=== PATIENT | female | born 1995 | race American Indian/Alaskan Native ===

== ENCOUNTER 2020-03-05 20:42 | Inpatient (IN) | payer BC, OTHER ==
[2020-03-06] MEDS ORDERED: TERBUTALINE 1 MG/1 ML INJ SUB-Q PRN ×2 (00:24→06:35)
[2020-03-06] MEDS ORDERED: LIDOCAINE (2%) 20 MG/1 ML VIAL 20 ML MDV INFILTRATI ONE (00:24)
[2020-03-06] MEDS ORDERED: ePHEDrine SULFATE 50 MG/1 ML INJ IV PRN (00:24)
[2020-03-06] MEDS ORDERED: MINERAL OIL 30 ML ORAL LIQD PO PRN (00:24)
[2020-03-06] MEDS ORDERED: DINOPROSTONE 10 MG VAG SUPP VG ONE (00:30)
[2020-03-06 00:57] LABS: Hematocrit 28.8 % (30.3-42.9); Hemoglobin 9.9 gm/dl (10.1-14.3); Mean Corpuscular HGB Conc 34 % (30-34); Mean Corpuscular Volume 83 fl (79-97); Platelet Count 317 K/mm3 (140-440); Red Blood Count 3.47 M/mm3 (3.65-5.03)
[2020-03-06] MEDS ORDERED: OXYTOCIN DRIP 30 UNITS/500 ML BAG IV SCH ×2 (01:00)
[2020-03-06] MEDS: LACTATED RINGERS 1,000 ML IV SCH ×4 (01:21→20:05)
[2020-03-06] MEDS ORDERED: fentaNYL 100 MCG/2 ML INJ IV PRN (06:35)
--- NOTE | 2020-03-06 07:19 | History and Physical Report ---
History of Present Illness Date of examination: 03/06/20 Date of admission: 03/05/20 20:42 Chief complaint: Presents for induction of labor due to maternal obesity. History of present illness: Pt transferred into care at 25 2/7 weeks to [facility] from [facility]. course complicated by maternal obesity and rapid weight gain, heart murmur (cardiac consult 12/10; normal echo 12/30), and HTN diagnosed in childhood (pt not on any medications). Denies NUNEZ, visual changes, N&V, abd pain. Admits mild swelling of feet. Past History Past Medical History: hypertension, other (bipolar disorder, pyelonephritis) Past Surgical History: other (ankle surgery) Family/Genetic History: cancer (breast cancer (maternal grandmother)) Social history: single - Obstetrical History Expected Date of Delivery: 03/12/20 Actual Gestation: 39 Week(s) 1 Day(s) : 2 Para: 0 Hx # Term Pregnancies: 0 Spontaneous Abortions: 0 Induced : 1 Number of Living Children: 0 Medications and Allergies Allergies Allergy/AdvReac Type Severity Reaction Status Date / Time hydrocodone Allergy Rash Verified 03/05/20 23:12 Home Medications Medication Instructions Recorded Confirmed Last Taken Type Cholecalciferol (Vitamin D3) 1,500 unit PO 1XW 03/06/20 03/06/20 02/28/20 08:00 History [Vitamin D3 2,000 UNIT CAP] One Daily Tablet 1 tab PO DAILY 03/06/20 03/06/20 03/05/20 08:00 History Active Meds: Active Medications Ephedrine Sulfate (Ephedrine Sulfate) 10 mg IV Q2M PRN PRN Reason: Hypotension Fentanyl (Sublimaze) 100 mcg IV Q2H PRN PRN Reason: Pain,Severe (7-10) LABOR PAIN Last Admin: 03/06/20 06:59 Dose: 100 mcg Documented by: Oxytocin/Sodium Chloride (Pitocin/Ns 30 Unit/500ml) 30 units in 500 mls @ 2 mls/hr IV TITR MELONY; Protocol Lactated Ringer's (Lactated Ringers) 1,000 mls @ 125 mls/hr IV DIRECT MELONY Last Admin: 03/06/20 01:21 Dose: 125 mls/hr Documented by: Oxytocin/Sodium Chloride (Pitocin/Ns 30 Unit/500ml) 30 units in 500 mls @ 40 mls/hr IV TITR MELONY; Protocol Mineral Oil (Mineral Oil) 30 ml PO QHS PRN PRN Reason: Constipation Terbutaline Sulfate (Brethine) 0.25 mg SUB-Q ONCE PRN PRN Reason: Hyperstimulation/Hypertonicity Review of Systems All systems: negative - Vital Signs Vital signs: Vital Signs Pulse BP 109 H 134/75 03/05/20 21:34 03/05/20 21:34 Temp Pulse Resp BP Pulse Ox 98.6 F 99 H 18 127/68 99 03/05/20 22:29 03/06/20 06:56 03/05/20 22:29 03/06/20 04:35 03/06/20 06:56 - Physical Exam Breasts: Positive: normal Cardiovascular: Regular rate Lungs: Positive: Normal air movement Abdomen: Positive: normal appearance, soft Genitourinary (Female): Positive: normal external genitalia, normal perenium Vagina: Positive: normal moisture Uterus: Positive: enlarged Anus/Rectum: Positive: normal perianal skin Extremities: Positive: normal - Obstetrical FHR: category 1 Uterine Contraction Monitor Mode: External Cervical Dilatation: 2 (per RN) Cervical Effacement Percentage: 50 station: -4 Uterine Contraction Pattern: Irregular Uterine Tone Measurement Phase: Resting Uterine Contraction Intensity: Mild Results Result Diagrams: 03/05/20 21:53 Abnormal lab results 03/05/20 Range/Units 21:53 WBC 13.9 H (4.5-11.0) K/mm3 RBC 3.47 L (3.65-5.03) M/mm3 Hgb 9.9 L (10.1-14.3) gm/dl Hct 28.8 L (30.3-42.9) % All other labs normal. Assessment and Plan A: IUP at 39 1/7 weeks Category I tracing Maternal Obesity Bipolar Disorder CHTN GBS Negative P: Admit to L&D per routine orders Cervidil Induction
--- NOTE | 2020-03-06 09:07 | Progress Note ---
Assessment and Plan A: IUP@ 39.2 wks IOL r/t Obesity, preeclampsia GBS neg P: Continue monitoring pain med/ epidural prn Will start Pitocin once cervidil is out - Patient Problems (1) Term Current Visit: Yes Status: Acute (2) Maternal obesity affecting , antepartum Current Visit: Yes Status: Acute (3) Bipolar 1 disorder Current Visit: Yes Status: Acute (4) Preeclampsia Current Visit: Yes Status: Acute Subjective - Subjective Date of service: 03/06/20 Principal diagnosis: IOL @ 39.2 wks Patient reports: movement normal Objective - Vital Signs Vital Signs: Vital Signs - 12hr 03/05/20 03/05/20 03/05/20 21:34 22:29 22:35 Temperature 98.6 F Pulse Rate 109 H 110 H Respiratory 18 Rate Blood Pressure 134/75 132/88 O2 Sat by Pulse Oximetry 03/05/20 03/06/20 03/06/20 23:36 00:35 01:18 Temperature Pulse Rate 111 H 95 H Respiratory Rate Blood Pressure 121/82 132/87 O2 Sat by Pulse 87 Oximetry 03/06/20 03/06/20 03/06/20 01:19 01:24 01:29 Temperature Pulse Rate 106 H 103 H 102 H Respiratory Rate Blood Pressure O2 Sat by Pulse 100 99 98 Oximetry 03/06/20 03/06/20 03/06/20 01:34 01:35 01:39 Temperature Pulse Rate 97 H 96 H 96 H Respiratory Rate Blood Pressure 134/67 O2 Sat by Pulse 97 98 Oximetry 03/06/20 03/06/20 03/06/20 01:44 01:49 01:54 Temperature Pulse Rate 97 H 104 H 97 H Respiratory Rate Blood Pressure O2 Sat by Pulse 97 97 97 Oximetry 03/06/20 03/06/20 03/06/20 01:59 02:04 02:09 Temperature Pulse Rate 98 H 102 H 101 H Respiratory Rate Blood Pressure O2 Sat by Pulse 98 98 97 Oximetry 03/06/20 03/06/20 03/06/20 02:14 02:19 02:24 Temperature Pulse Rate 102 H 99 H 102 H Respiratory Rate Blood Pressure O2 Sat by Pulse 97 96 97 Oximetry 03/06/20 03/06/20 03/06/20 02:29 02:34 02:35 Temperature Pulse Rate 99 H 95 H 99 H Respiratory Rate Blood Pressure 126/87 O2 Sat by Pulse 98 98 Oximetry 03/06/20 03/06/20 03/06/20 02:39 02:44 02:49 Temperature Pulse Rate 101 H 103 H 98 H Respiratory Rate Blood Pressure O2 Sat by Pulse 98 98 99 Oximetry 03/06/20 03/06/20 03/06/20 02:54 02:59 03:04 Temperature Pulse Rate 103 H 91 H 97 H Respiratory Rate Blood Pressure O2 Sat by Pulse 99 99 98 Oximetry 03/06/20 03/06/20 03/06/20 03:09 03:14 03:19 Temperature Pulse Rate 93 H 86 92 H Respiratory Rate Blood Pressure O2 Sat by Pulse 98 98 99 Oximetry 03/06/20 03/06/20 03/06/20 03:24 03:29 03:34 Temperature Pulse Rate 89 97 H 95 H Respiratory Rate Blood Pressure O2 Sat by Pulse 99 99 99 Oximetry 03/06/20 03/06/20 03/06/20 03:36 03:39 03:44 Temperature Pulse Rate 100 H 93 H 91 H Respiratory Rate Blood Pressure 135/76 O2 Sat by Pulse 99 98 Oximetry 03/06/20 03/06/20 03/06/20 03:49 03:54 03:59 Temperature Pulse Rate 93 H 92 H 93 H Respiratory Rate Blood Pressure O2 Sat by Pulse 98 98 98 Oximetry 03/06/20 03/06/20 03/06/20 04:04 04:09 04:14 Temperature Pulse Rate 91 H 98 H 95 H Respiratory Rate Blood Pressure O2 Sat by Pulse 97 98 97 Oximetry 03/06/20 03/06/20 03/06/20 04:19 04:24 04:29 Temperature Pulse Rate 96 H 95 H 97 H Respiratory Rate Blood Pressure O2 Sat by Pulse 98 98 98 Oximetry 03/06/20 03/06/20 03/06/20 04:34 04:35 04:39 Temperature Pulse Rate 100 H 100 H 108 H Respiratory Rate Blood Pressure 127/68 O2 Sat by Pulse 98 98 Oximetry 03/06/20 03/06/20 03/06/20 04:44 04:56 05:01 Temperature Pulse Rate 107 H 114 H 99 H Respiratory Rate Blood Pressure O2 Sat by Pulse 97 100 100 Oximetry 03/06/20 03/06/20 03/06/20 05:06 05:11 05:16 Temperature Pulse Rate 101 H 98 H 106 H Respiratory Rate Blood Pressure O2 Sat by Pulse 98 99 99 Oximetry 03/06/20 03/06/20 03/06/20 05:21 05:26 05:31 Temperature Pulse Rate 100 H 101 H 103 H Respiratory Rate Blood Pressure O2 Sat by Pulse 99 98 98 Oximetry 03/06/20 03/06/20 03/06/20 05:36 05:41 05:46 Temperature Pulse Rate 100 H 103 H 100 H Respiratory Rate Blood Pressure O2 Sat by Pulse 98 98 99 Oximetry 03/06/20 03/06/20 03/06/20 05:51 05:56 06:01 Temperature Pulse Rate 108 H 103 H 109 H Respiratory Rate Blood Pressure O2 Sat by Pulse 98 98 98 Oximetry 03/06/20 03/06/20 03/06/20 06:06 06:11 06:16 Temperature Pulse Rate 108 H 98 H 98 H Respiratory Rate Blood Pressure O2 Sat by Pulse 99 100 99 Oximetry 03/06/20 03/06/20 03/06/20 06:21 06:26 06:31 Temperature Pulse Rate 97 H 95 H 93 H Respiratory Rate Blood Pressure O2 Sat by Pulse 98 100 99 Oximetry 03/06/20 03/06/20 03/06/20 06:41 06:46 06:51 Temperature Pulse Rate 107 H 99 H 100 H Respiratory Rate Blood Pressure O2 Sat by Pulse 100 99 100 Oximetry 03/06/20 03/06/20 03/06/20 06:56 07:01 07:06 Temperature Pulse Rate 99 H 102 H 101 H Respiratory Rate Blood Pressure O2 Sat by Pulse 99 98 98 Oximetry 03/06/20 03/06/20 03/06/20 07:11 07:16 07:21 Temperature Pulse Rate 107 H 109 H 107 H Respiratory Rate Blood Pressure O2 Sat by Pulse 98 98 99 Oximetry 03/06/20 03/06/20 03/06/20 07:26 07:31 07:36 Temperature Pulse Rate 107 H 105 H 105 H Respiratory Rate Blood Pressure O2 Sat by Pulse 99 99 98 Oximetry 03/06/20 03/06/20 03/06/20 07:41 07:46 07:55 Temperature Pulse Rate 106 H 105 H 104 H Respiratory Rate Blood Pressure O2 Sat by Pulse 98 98 99 Oximetry 11/05/20 11/05/20 11/05/20 08:00 08:05 08:10 Temperature Pulse Rate 114 H 98 H 99 H Respiratory Rate Blood Pressure O2 Sat by Pulse 98 99 99 Oximetry 03/06/20 03/06/20 03/06/20 08:15 08:18 08:20 Temperature 98.6 F Pulse Rate 104 H 103 H Respiratory 20 Rate Blood Pressure O2 Sat by Pulse 99 99 Oximetry 03/06/20 03/06/20 03/06/20 08:25 08:30 08:35 Temperature Pulse Rate 105 H 109 H 110 H Respiratory Rate Blood Pressure O2 Sat by Pulse 99 99 98 Oximetry 03/06/20 03/06/20 03/06/20 08:40 08:45 08:50 Temperature Pulse Rate 105 H 103 H 104 H Respiratory Rate Blood Pressure O2 Sat by Pulse 99 100 99 Oximetry 03/06/20 03/06/20 08:55 09:00 Temperature Pulse Rate 102 H 106 H Respiratory Rate Blood Pressure O2 Sat by Pulse 100 100 Oximetry - Exam Breasts: normal Abdomen: Present: normal appearance, soft, other (gravid) Vulva: both: normal Uterus: Present: normal, other (gravid) FHR: auscultation normal, category 1 Uterine Contraction Monitor Mode: External Cervical Dilatation: 2 Cervical Effacement Percentage: 50 station: -4 Uterine Contraction Pattern: Irregular Uterine Tone Measurement Phase: Resting Uterine Contraction Intensity: Mild Extremities: normal - Labs Labs: Abnormal Labs 03/05/20 21:53 WBC 13.9 H RBC 3.47 L Hgb 9.9 L Hct 28.8 L Laboratory Results - last 24 hr 03/05/20 03/05/20 03/05/20 21:53 21:53 21:53 WBC 13.9 H RBC 3.47 L Hgb 9.9 L Hct 28.8 L MCV 83 MCH 29 MCHC 34 RDW 15.0 Plt Count 317 Syphilis IgG Antibody Nonreactive Blood Type A POSITIVE Antibody Screen Negative
[2020-03-06] MEDS ORDERED: NalbUPHINE 10 MG/1 ML INJ IV PRN ×2 (11:45→14:25)
[2020-03-06] MEDS ORDERED: ONDANSETRON 4 MG/2 ML INJ IV PRN ×2 (11:45→14:25)
[2020-03-06] MEDS ORDERED: BUTORPHANOL 2 MG/1 ML INJ IV PRN (11:52)
[2020-03-06] MEDS ORDERED: NALOXONE 2 MG/2 ML INJ IV PRN (14:25)
[2020-03-06] MEDS ORDERED: diphenhydrAMINE 50 MG/ML VIAL IV PRN (14:25)
[2020-03-06] MEDS ORDERED: DEXMEDETOMIDINE 200 MCG/2 ML VIAL IV ONE (14:28)
--- NOTE | 2020-03-06 15:03 | Anesthesia Consultation ---
Anesthesia Consult and Med Hx Date of service: 03/06/20 - Airway Anesthetic Teeth Evaluation: Good ROM Head & Neck: Adequate Mental/Hyoid Distance: Adequate Mallampati Class: Class III Intubation Access Assessment: Probably Good - Pulmonary Exam CTA: Yes - Cardiac Exam Cardiac Exam: RRR - Pre-Operative Health Status ASA Pre-Surgery Classification: ASA2 Proposed Anesthetic Plan: Epidural - Pulmonary Hx Smoking: No Hx Asthma: No Hx Sleep Apnea: No - Cardiovascular System Hx Hypertension: Yes Hx Heart Attack/AMI: No - Central Nervous System Hx Seizures: No Hx Psychiatric Problems: No - Gastrointestinal Hx Gastroesophageal Reflux Disease: No - Endocrine Hx Renal Disease: No Hx Hypothyroidism: No Hx Hyperthyroidism: No - Hematic Hx Anemia: No Hx Sickle Cell Disease: No - Other Systems Hx Alcohol Use: Yes
--- NOTE | 2020-03-06 15:06 | Progress Note ---
Labor Epidural - Labor Epidural Start Time: 14:32 Stop Time: 14:54 Performed by:: VANE SMITH ([facility]) Procedure: Patient is requesting a laboring epidural for laboring pain. Patient IDed, H&P reviewed, all questions and concerns were answered, and consent was signed. Timeout was performed at bedside. Patient in sitting position. Sterile prep and drape was performed. 3ml of 1% lidocaine skin wheal at L[3]- L [4]. 18- gauge Touhy epidural needle was advanced to loss of resistance with air technique. Negative CSF negative blood. Epidural catheter advanced to [17] centimeters. [-] Aspiration [-] test dose. Sterile dressing applied. Patient tolerated procedure.
[2020-03-06] MEDS: fentaNYL-BUPIV 2 MCG/ML-0.125% 200 MCG/100 ML BAG EPIDURAL SCH ×2 (15:25→23:31)
--- NOTE | 2020-03-06 20:22 | Progress Note ---
Assessment and Plan A: IUP @39.2 wks Preeclampsia P: Continue monitoring Anticipate - Patient Problems (1) Term Current Visit: Yes Status: Acute (2) Maternal obesity affecting , antepartum Current Visit: Yes Status: Acute (3) Bipolar 1 disorder Current Visit: Yes Status: Acute (4) Preeclampsia Current Visit: Yes Status: Acute Subjective - Subjective Date of service: 03/06/20 Principal diagnosis: IOL @ 39.2 wks Patient reports: movement normal Objective - Vital Signs Vital Signs: Vital Signs - 12hr 03/06/20 03/06/20 03/06/20 08:18 08:20 08:25 Temperature 98.6 F Pulse Rate 103 H 105 H Respiratory 20 Rate Blood Pressure O2 Sat by Pulse 99 99 Oximetry 03/06/20 03/06/20 03/06/20 08:30 08:35 08:40 Temperature Pulse Rate 109 H 110 H 105 H Respiratory Rate Blood Pressure O2 Sat by Pulse 99 98 99 Oximetry 03/06/20 03/06/20 03/06/20 08:45 08:50 08:55 Temperature Pulse Rate 103 H 104 H 102 H Respiratory Rate Blood Pressure O2 Sat by Pulse 100 99 100 Oximetry 03/06/20 03/06/20 03/06/20 09:00 09:05 09:14 Temperature Pulse Rate 106 H 106 H 103 H Respiratory Rate Blood Pressure O2 Sat by Pulse 100 98 100 Oximetry 03/06/20 03/06/20 03/06/20 09:19 09:24 09:29 Temperature Pulse Rate 107 H 99 H 107 H Respiratory Rate Blood Pressure O2 Sat by Pulse 98 99 99 Oximetry 03/06/20 03/06/20 03/06/20 09:34 09:39 09:44 Temperature Pulse Rate 106 H 102 H 98 H Respiratory Rate Blood Pressure O2 Sat by Pulse 100 99 100 Oximetry 03/06/20 03/06/20 03/06/20 09:49 09:54 09:59 Temperature Pulse Rate 104 H 104 H 113 H Respiratory Rate Blood Pressure O2 Sat by Pulse 99 99 100 Oximetry 03/06/20 03/06/20 03/06/20 10:04 10:09 10:16 Temperature Pulse Rate 112 H 107 H 105 H Respiratory Rate Blood Pressure O2 Sat by Pulse 99 99 99 Oximetry 03/06/20 03/06/20 03/06/20 10:21 10:26 10:31 Temperature Pulse Rate 111 H 111 H 110 H Respiratory Rate Blood Pressure O2 Sat by Pulse 99 99 99 Oximetry 03/06/20 03/06/20 03/06/20 10:36 10:41 10:46 Temperature Pulse Rate 112 H 108 H 110 H Respiratory Rate Blood Pressure O2 Sat by Pulse 100 100 100 Oximetry 03/06/20 03/06/20 03/06/20 10:51 10:56 11:01 Temperature Pulse Rate 109 H 111 H 108 H Respiratory Rate Blood Pressure O2 Sat by Pulse 99 98 99 Oximetry 03/06/20 03/06/20 03/06/20 11:06 11:11 11:14 Temperature Pulse Rate 109 H 108 H 44 L Respiratory Rate Blood Pressure O2 Sat by Pulse 100 100 93 Oximetry 03/06/20 03/06/20 03/06/20 11:16 11:21 11:26 Temperature Pulse Rate 111 H 111 H 112 H Respiratory Rate Blood Pressure O2 Sat by Pulse 99 100 100 Oximetry 03/06/20 03/06/20 03/06/20 11:31 11:36 11:41 Temperature Pulse Rate 109 H 111 H 108 H Respiratory Rate Blood Pressure O2 Sat by Pulse 99 99 99 Oximetry 03/06/20 03/06/20 03/06/20 11:46 11:52 11:57 Temperature Pulse Rate 116 H 109 H 109 H Respiratory Rate Blood Pressure O2 Sat by Pulse 100 99 99 Oximetry 03/06/20 03/06/20 03/06/20 11:59 12:02 12:07 Temperature Pulse Rate 106 H 111 H 109 H Respiratory Rate Blood Pressure 139/84 O2 Sat by Pulse 98 98 Oximetry 03/06/20 03/06/20 03/06/20 12:12 12:16 12:17 Temperature Pulse Rate 110 H 102 H 109 H Respiratory Rate Blood Pressure 134/82 O2 Sat by Pulse 98 99 Oximetry 03/06/20 03/06/20 03/06/20 12:22 12:27 12:31 Temperature Pulse Rate 100 H 109 H 109 H Respiratory Rate Blood Pressure 142/84 O2 Sat by Pulse 97 97 Oximetry 03/06/20 03/06/20 03/06/20 12:32 12:37 12:42 Temperature Pulse Rate 108 H 107 H 104 H Respiratory Rate Blood Pressure O2 Sat by Pulse 99 98 99 Oximetry 1103/06/20 03/06/20 12:45 12:46 12:47 Temperature Pulse Rate 103 H 99 H 105 H Respiratory Rate Blood Pressure 156/91 143/85 O2 Sat by Pulse 97 Oximetry 03/06/20 03/06/20 03/06/20 12:52 12:57 12:59 Temperature Pulse Rate 103 H 103 H 103 H Respiratory Rate Blood Pressure 135/81 O2 Sat by Pulse 100 98 Oximetry 03/06/20 03/06/20 03/06/20 13:02 13:03 13:07 Temperature Pulse Rate 104 H 50 L 109 H Respiratory Rate Blood Pressure O2 Sat by Pulse 98 80 L 97 Oximetry 03/06/20 03/06/20 03/06/20 13:12 13:14 13:17 Temperature Pulse Rate 111 H 103 H 106 H Respiratory Rate Blood Pressure 145/86 O2 Sat by Pulse 98 97 Oximetry 03/06/20 03/06/20 03/06/20 13:22 13:27 13:31 Temperature Pulse Rate 103 H 110 H 107 H Respiratory Rate Blood Pressure 175/92 O2 Sat by Pulse 96 99 Oximetry 03/06/20 03/06/20 03/06/20 13:32 13:37 13:42 Temperature Pulse Rate 106 H 111 H 108 H Respiratory Rate Blood Pressure O2 Sat by Pulse 97 99 97 Oximetry 03/06/20 03/06/20 03/06/20 13:44 13:47 13:52 Temperature Pulse Rate 106 H 107 H 109 H Respiratory Rate Blood Pressure 159/84 O2 Sat by Pulse 99 97 Oximetry 03/06/20 03/06/20 03/06/20 13:57 13:59 14:02 Temperature Pulse Rate 108 H 107 H 113 H Respiratory Rate Blood Pressure 152/81 O2 Sat by Pulse 99 98 Oximetry 03/06/20 03/06/20 03/06/20 14:07 14:12 14:16 Temperature Pulse Rate 106 H 111 H 109 H Respiratory Rate Blood Pressure 142/80 O2 Sat by Pulse 99 99 Oximetry 03/06/20 03/06/20 03/06/20 14:17 14:22 14:27 Temperature Pulse Rate 112 H 114 H 116 H Respiratory Rate Blood Pressure O2 Sat by Pulse 99 99 99 Oximetry 03/06/20 03/06/20 03/06/20 14:30 14:32 14:36 Temperature Pulse Rate 114 H 119 H Respiratory Rate Blood Pressure 136/95 O2 Sat by Pulse 99 82 L Oximetry 03/06/20 03/06/20 03/06/20 14:37 14:42 14:45 Temperature Pulse Rate 110 H 111 H 109 H Respiratory Rate Blood Pressure 162/85 O2 Sat by Pulse 98 100 Oximetry 03/06/20 03/06/20 03/06/20 14:47 14:52 14:55 Temperature Pulse Rate 112 H 112 H 117 H Respiratory Rate Blood Pressure 144/85 O2 Sat by Pulse 100 100 Oximetry 03/06/20 03/06/20 03/06/20 14:57 14:58 15:00 Temperature Pulse Rate 116 H 122 H 121 H Respiratory Rate Blood Pressure 169/80 191/114 O2 Sat by Pulse 100 Oximetry 03/06/20 03/06/20 03/06/20 15:02 15:03 15:06 Temperature Pulse Rate 120 H 112 H 105 H Respiratory Rate Blood Pressure 175/75 142/60 O2 Sat by Pulse 100 Oximetry 03/06/20 03/06/20 03/06/20 15:07 15:09 15:12 Temperature Pulse Rate 112 H 110 H 102 H Respiratory Rate Blood Pressure 153/83 150/75 O2 Sat by Pulse 99 99 Oximetry 03/06/20 03/06/20 03/06/20 15:15 15:17 15:18 Temperature Pulse Rate 108 H 112 H 110 H Respiratory Rate Blood Pressure 135/73 123/61 O2 Sat by Pulse 99 Oximetry 03/06/20 03/06/20 03/06/20 15:21 15:22 15:24 Temperature Pulse Rate 113 H 102 H 104 H Respiratory Rate Blood Pressure 114/61 121/68 O2 Sat by Pulse 99 Oximetry 03/06/20 03/06/20 03/06/20 15:27 15:30 15:32 Temperature Pulse Rate 108 H 107 H 105 H Respiratory Rate Blood Pressure 121/69 120/64 O2 Sat by Pulse 98 98 Oximetry 03/06/20 03/06/20 03/06/20 15:33 15:36 15:37 Temperature Pulse Rate 108 H 107 H 104 H Respiratory Rate Blood Pressure 123/70 117/65 O2 Sat by Pulse 98 Oximetry 03/06/20 03/06/20 03/06/20 15:39 15:42 15:45 Temperature Pulse Rate 112 H 110 H 107 H Respiratory Rate Blood Pressure 119/63 119/67 123/68 O2 Sat by Pulse 98 Oximetry 03/06/20 03/06/20 03/06/20 15:47 15:48 15:51 Temperature Pulse Rate 105 H 104 H 110 H Respiratory Rate Blood Pressure 127/68 121/68 O2 Sat by Pulse 97 Oximetry 03/06/20 03/06/20 03/06/20 15:52 15:54 15:57 Temperature Pulse Rate 108 H 108 H 107 H Respiratory Rate Blood Pressure 121/70 119/65 O2 Sat by Pulse 97 96 Oximetry 03/06/20 03/06/20 03/06/20 16:00 16:02 16:03 Temperature Pulse Rate 107 H 104 H 109 H Respiratory Rate Blood Pressure 119/66 109/59 O2 Sat by Pulse 97 Oximetry 03/06/20 03/06/20 03/06/20 16:06 16:07 16:12 Temperature Pulse Rate 109 H 104 H 102 H Respiratory Rate Blood Pressure 117/64 O2 Sat by Pulse 96 97 Oximetry 03/06/20 03/06/20 03/06/20 16:17 16:22 16:27 Temperature Pulse Rate 111 H 105 H 105 H Respiratory Rate Blood Pressure 132/76 O2 Sat by Pulse 96 98 98 Oximetry 03/06/20 03/06/20 03/06/20 16:32 16:36 16:37 Temperature Pulse Rate 105 H 103 H 103 H Respiratory Rate Blood Pressure 137/77 O2 Sat by Pulse 97 99 Oximetry 03/06/20 03/06/20 03/06/20 16:42 16:47 16:51 Temperature Pulse Rate 114 H 109 H 107 H Respiratory Rate Blood Pressure 135/81 O2 Sat by Pulse 99 100 Oximetry 03/06/20 03/06/20 03/06/20 16:52 16:57 17:02 Temperature Pulse Rate 105 H 117 H 101 H Respiratory Rate Blood Pressure O2 Sat by Pulse 100 100 100 Oximetry 03/06/20 03/06/20 03/06/20 17:06 17:07 17:12 Temperature Pulse Rate 108 H 113 H 115 H Respiratory Rate Blood Pressure 124/74 O2 Sat by Pulse 99 99 Oximetry 03/06/20 03/06/20 03/06/20 17:17 17:21 17:22 Temperature Pulse Rate 120 H 113 H 112 H Respiratory Rate Blood Pressure 121/69 O2 Sat by Pulse 99 100 Oximetry 03/06/20 03/06/20 03/06/20 17:27 17:32 17:36 Temperature Pulse Rate 111 H 112 H 112 H Respiratory Rate Blood Pressure 134/87 O2 Sat by Pulse 100 99 Oximetry 03/06/20 03/06/20 03/06/20 17:37 17:42 17:47 Temperature Pulse Rate 116 H 106 H 110 H Respiratory Rate Blood Pressure O2 Sat by Pulse 99 98 98 Oximetry 03/06/20 03/06/20 03/06/20 17:51 17:52 17:57 Temperature Pulse Rate 107 H 110 H 114 H Respiratory Rate Blood Pressure 120/70 O2 Sat by Pulse 99 99 Oximetry 03/06/20 03/06/20 03/06/20 18:02 18:06 18:07 Temperature Pulse Rate 111 H 108 H 113 H Respiratory Rate Blood Pressure 125/76 O2 Sat by Pulse 99 98 Oximetry 03/06/20 03/06/20 03/06/20 18:12 18:17 18:21 Temperature Pulse Rate 113 H 115 H 116 H Respiratory Rate Blood Pressure 152/99 O2 Sat by Pulse 98 99 Oximetry 03/06/20 03/06/20 03/06/20 18:22 18:27 18:32 Temperature Pulse Rate 117 H 116 H 126 H Respiratory Rate Blood Pressure O2 Sat by Pulse 99 99 99 Oximetry 03/06/20 03/06/20 03/06/20 18:36 18:37 18:42 Temperature Pulse Rate 120 H 123 H 118 H Respiratory Rate Blood Pressure 149/101 O2 Sat by Pulse 98 98 Oximetry 03/06/20 03/06/20 03/06/20 18:47 18:51 18:52 Temperature Pulse Rate 117 H 125 H 120 H Respiratory Rate Blood Pressure 137/82 O2 Sat by Pulse 98 98 Oximetry 03/06/20 03/06/20 03/06/20 18:57 19:02 19:06 Temperature Pulse Rate 122 H 114 H 118 H Respiratory Rate Blood Pressure 139/90 O2 Sat by Pulse 98 98 Oximetry 03/06/20 03/06/20 03/06/20 19:07 19:12 19:17 Temperature Pulse Rate 117 H 116 H 112 H Respiratory Rate Blood Pressure O2 Sat by Pulse 98 96 98 Oximetry 03/06/20 03/06/20 03/06/20 19:21 19:22 19:27 Temperature Pulse Rate 114 H 114 H 114 H Respiratory Rate Blood Pressure 130/75 O2 Sat by Pulse 97 97 Oximetry 03/06/20 03/06/20 03/06/20 19:32 19:36 19:37 Temperature Pulse Rate 117 H 116 H 119 H Respiratory Rate Blood Pressure 141/88 O2 Sat by Pulse 98 98 Oximetry 03/06/20 03/06/20 03/06/20 19:42 19:47 19:51 Temperature Pulse Rate 118 H 117 H 117 H Respiratory Rate Blood Pressure 131/77 O2 Sat by Pulse 98 97 Oximetry 03/06/20 03/06/20 03/06/20 19:52 19:57 20:02 Temperature Pulse Rate 121 H 121 H 112 H Respiratory Rate Blood Pressure O2 Sat by Pulse 97 96 97 Oximetry 03/06/20 03/06/20 20:07 20:12 Temperature Pulse Rate 116 H 124 H Respiratory Rate Blood Pressure 124/73 O2 Sat by Pulse 97 97 Oximetry - Exam Breasts: deferred Abdomen: Present: normal appearance, soft Vulva: both: normal Uterus: Present: normal, other (gravid) FHR: auscultation normal, category 1 Uterine Contraction Monitor Mode: External Cervical Dilatation: 4 Cervical Effacement Percentage: 75 station: -2 Uterine Contraction Frequency (min): q3-4 Uterine Contraction Pattern: Regular Uterine Tone Measurement Phase: Resting Uterine Contraction Intensity: Moderate Extremities: normal - Labs Labs: Abnormal Labs 03/05/20 21:53 WBC 13.9 H RBC 3.47 L Hgb 9.9 L Hct 28.8 L Laboratory Results - last 24 hr 03/05/20 03/05/20 03/05/20 21:53 21:53 21:53 WBC 13.9 H RBC 3.47 L Hgb 9.9 L Hct 28.8 L MCV 83 MCH 29 MCHC 34 RDW 15.0 Plt Count 317 Syphilis IgG Antibody Nonreactive Blood Type A POSITIVE Antibody Screen Negative
[2020-03-06] MEDS ORDERED: AMPICILLIN/NS 2 GM/100 ML 2 GM/100 ML BAG IV ONE (21:27)
[2020-03-07] MEDS ORDERED: ACETAMINOPHEN 325 MG TAB PO ONE (00:13)
[2020-03-07] MEDS ORDERED: AMPICILLIN/NS 2 GM/100 ML 2 GM/100 ML BAG IV ONE (00:30)
[2020-03-07] MEDS: LACTATED RINGERS 1,000 ML IV SCH ×3 (00:56→19:50)
[2020-03-07] MEDS: AMPICILLIN/NS 1 GM/50 ML 1 GM/50 ML BAG IV SCH ×5 (04:55→20:17)
--- NOTE | 2020-03-07 06:05 | Progress Note ---
Assessment and Plan A: IUP@ 39.3 wks chorioamnionitis P: Start Ampi Admin Tylenol IV bolus Continue monitoring Expectant mtg POC agrees with plan - Patient Problems (1) Term Current Visit: Yes Status: Acute (2) Maternal obesity affecting , antepartum Current Visit: Yes Status: Acute (3) Bipolar 1 disorder Current Visit: Yes Status: Acute (4) Preeclampsia Current Visit: Yes Status: Acute Subjective - Subjective Principal diagnosis: IOL @ 39.2 wks Patient reports: movement normal Objective - Vital Signs Vital Signs: Vital Signs - 12hr 03/06/20 03/06/20 03/06/20 17:57 18:02 18:06 Temperature Pulse Rate 114 H 111 H 108 H Respiratory Rate Blood Pressure 125/76 O2 Sat by Pulse 99 99 Oximetry 03/06/20 03/06/20 03/06/20 18:07 18:12 18:17 Temperature Pulse Rate 113 H 113 H 115 H Respiratory Rate Blood Pressure O2 Sat by Pulse 98 98 99 Oximetry 03/06/20 03/06/20 03/06/20 18:21 18:22 18:27 Temperature Pulse Rate 116 H 117 H 116 H Respiratory Rate Blood Pressure 152/99 O2 Sat by Pulse 99 99 Oximetry 03/06/20 03/06/20 03/06/20 18:32 18:36 18:37 Temperature Pulse Rate 126 H 120 H 123 H Respiratory Rate Blood Pressure 149/101 O2 Sat by Pulse 99 98 Oximetry 03/06/20 03/06/20 03/06/20 18:42 18:47 18:51 Temperature Pulse Rate 118 H 117 H 125 H Respiratory Rate Blood Pressure 137/82 O2 Sat by Pulse 98 98 Oximetry 03/06/20 03/06/20 03/06/20 18:52 18:57 19:02 Temperature Pulse Rate 120 H 122 H 114 H Respiratory Rate Blood Pressure O2 Sat by Pulse 98 98 98 Oximetry 03/06/20 03/06/20 03/06/20 19:06 19:07 19:12 Temperature Pulse Rate 118 H 117 H 116 H Respiratory Rate Blood Pressure 139/90 O2 Sat by Pulse 98 96 Oximetry 03/06/20 03/06/20 03/06/20 19:15 19:17 19:21 Temperature 99.2 F Pulse Rate 112 H 114 H Respiratory 18 Rate Blood Pressure 130/75 O2 Sat by Pulse 98 Oximetry 03/06/20 03/06/20 03/06/20 19:22 19:27 19:32 Temperature Pulse Rate 114 H 114 H 117 H Respiratory Rate Blood Pressure O2 Sat by Pulse 97 97 98 Oximetry 03/06/20 03/06/20 03/06/20 19:36 19:37 19:42 Temperature Pulse Rate 116 H 119 H 118 H Respiratory Rate Blood Pressure 141/88 O2 Sat by Pulse 98 98 Oximetry 03/06/20 03/06/20 03/06/20 19:47 19:51 19:52 Temperature Pulse Rate 117 H 117 H 121 H Respiratory Rate Blood Pressure 131/77 O2 Sat by Pulse 97 97 Oximetry 03/06/20 03/06/20 03/06/20 19:57 20:02 20:07 Temperature Pulse Rate 121 H 112 H 116 H Respiratory Rate Blood Pressure 124/73 O2 Sat by Pulse 96 97 97 Oximetry 03/06/20 03/06/20 03/06/20 20:12 20:17 20:21 Temperature Pulse Rate 124 H 116 H 118 H Respiratory Rate Blood Pressure 149/68 O2 Sat by Pulse 97 98 Oximetry 03/06/20 03/06/20 03/06/20 20:22 20:27 20:32 Temperature Pulse Rate 116 H 120 H 125 H Respiratory Rate Blood Pressure O2 Sat by Pulse 98 98 97 Oximetry 03/06/20 03/06/20 03/06/20 20:37 20:42 20:47 Temperature Pulse Rate 114 H 121 H 117 H Respiratory Rate Blood Pressure 144/91 O2 Sat by Pulse 99 98 99 Oximetry 03/06/20 03/06/20 03/06/20 20:52 20:57 21:02 Temperature Pulse Rate 117 H 114 H 113 H Respiratory Rate Blood Pressure 139/89 O2 Sat by Pulse 98 99 98 Oximetry 03/06/20 03/06/20 03/06/20 21:06 21:07 21:12 Temperature Pulse Rate 114 H 114 H 109 H Respiratory Rate Blood Pressure 142/76 O2 Sat by Pulse 97 99 Oximetry 03/06/20 03/06/20 03/06/20 21:17 21:21 21:22 Temperature Pulse Rate 115 H 117 H 122 H Respiratory Rate Blood Pressure 136/63 O2 Sat by Pulse 98 97 Oximetry 11/05/20 11/05/20 11/05/20 21:27 21:32 21:36 Temperature Pulse Rate 116 H 117 H 114 H Respiratory Rate Blood Pressure 136/74 O2 Sat by Pulse 97 98 Oximetry 03/06/20 03/06/20 03/06/20 21:37 21:42 21:47 Temperature Pulse Rate 119 H 111 H 113 H Respiratory Rate Blood Pressure O2 Sat by Pulse 97 97 97 Oximetry 03/06/20 03/06/20 03/06/20 21:52 21:57 22:00 Temperature 99.8 F H Pulse Rate 123 H 118 H Respiratory 18 Rate Blood Pressure 146/88 O2 Sat by Pulse 98 96 Oximetry 03/06/20 03/06/20 03/06/20 22:02 22:06 22:07 Temperature Pulse Rate 118 H 115 H 117 H Respiratory Rate Blood Pressure 136/69 O2 Sat by Pulse 96 97 Oximetry 03/06/20 03/06/20 03/06/20 22:12 22:17 22:21 Temperature Pulse Rate 111 H 107 H 111 H Respiratory Rate Blood Pressure 133/72 O2 Sat by Pulse 97 100 Oximetry 03/06/20 03/06/20 03/06/20 22:22 22:27 22:32 Temperature Pulse Rate 113 H 110 H 113 H Respiratory Rate Blood Pressure O2 Sat by Pulse 99 98 97 Oximetry 03/06/20 03/06/20 03/06/20 22:36 22:37 22:42 Temperature Pulse Rate 107 H 114 H 118 H Respiratory Rate Blood Pressure 138/73 O2 Sat by Pulse 98 97 Oximetry 03/06/20 03/06/20 03/06/20 22:47 22:51 22:52 Temperature Pulse Rate 119 H 113 H 118 H Respiratory Rate Blood Pressure 140/70 O2 Sat by Pulse 97 97 Oximetry 03/06/20 03/06/20 03/06/20 22:57 23:02 23:07 Temperature Pulse Rate 119 H 122 H 118 H Respiratory Rate Blood Pressure O2 Sat by Pulse 99 95 99 Oximetry 03/06/20 03/06/20 03/06/20 23:12 23:17 23:22 Temperature Pulse Rate 119 H 124 H 125 H Respiratory Rate Blood Pressure 127/93 O2 Sat by Pulse 96 97 94 Oximetry 03/06/20 03/06/20 03/06/20 23:27 23:32 23:36 Temperature Pulse Rate 125 H 122 H 139 H Respiratory Rate Blood Pressure 137/89 O2 Sat by Pulse 94 94 Oximetry 03/06/20 03/06/20 03/06/20 23:37 23:41 23:42 Temperature Pulse Rate 125 H 119 H Respiratory Rate Blood Pressure O2 Sat by Pulse 96 94 96 Oximetry 03/06/20 03/06/20 03/06/20 23:46 23:47 23:51 Temperature Pulse Rate 121 H 126 H Respiratory Rate Blood Pressure O2 Sat by Pulse 94 95 94 Oximetry 03/06/20 03/06/20 03/06/20 23:52 23:56 23:57 Temperature Pulse Rate 121 H 125 H 124 H Respiratory Rate Blood Pressure 138/63 O2 Sat by Pulse 100 94 94 Oximetry 03/07/20 03/07/20 03/07/20 00:00 00:02 00:06 Temperature 101.1 F H Pulse Rate 123 H 127 H Respiratory 20 Rate Blood Pressure 160/85 O2 Sat by Pulse 98 Oximetry 03/07/20 03/07/20 03/07/20 00:07 00:12 00:17 Temperature Pulse Rate 133 H 114 H 122 H Respiratory Rate Blood Pressure O2 Sat by Pulse 96 98 96 Oximetry 03/07/20 03/07/20 03/07/20 00:18 00:21 00:22 Temperature Pulse Rate 119 H 120 H 122 H Respiratory Rate Blood Pressure 144/82 O2 Sat by Pulse 94 96 Oximetry 03/07/20 03/07/20 03/07/20 00:27 00:32 00:37 Temperature Pulse Rate 120 H 117 H 118 H Respiratory Rate Blood Pressure 141/84 O2 Sat by Pulse 93 96 92 Oximetry 03/07/20 03/07/20 03/07/20 00:42 00:47 00:49 Temperature Pulse Rate 121 H 121 H 119 H Respiratory Rate Blood Pressure O2 Sat by Pulse 96 96 92 Oximetry 03/07/20 03/07/20 03/07/20 00:51 00:52 00:57 Temperature Pulse Rate 114 H 118 H 113 H Respiratory Rate Blood Pressure 143/78 O2 Sat by Pulse 94 99 Oximetry 03/07/20 03/07/20 03/07/20 00:58 01:02 01:03 Temperature Pulse Rate 118 H 117 H 113 H Respiratory Rate Blood Pressure 138/86 138/85 O2 Sat by Pulse 97 Oximetry 03/07/20 03/07/20 03/07/20 01:07 01:08 01:12 Temperature Pulse Rate 116 H 114 H 113 H Respiratory Rate Blood Pressure 128/79 127/76 O2 Sat by Pulse 97 93 96 Oximetry 03/07/20 03/07/20 03/07/20 01:17 01:18 01:22 Temperature Pulse Rate 118 H 115 H 117 H Respiratory Rate Blood Pressure 131/78 O2 Sat by Pulse 97 94 97 Oximetry 03/07/20 03/07/20 03/07/20 01:27 01:32 01:37 Temperature Pulse Rate 113 H 120 H 112 H Respiratory Rate Blood Pressure O2 Sat by Pulse 98 96 98 Oximetry 03/07/20 03/07/20 03/07/20 01:42 01:47 01:49 Temperature Pulse Rate 112 H 122 H 118 H Respiratory Rate Blood Pressure 120/73 O2 Sat by Pulse 96 96 Oximetry 03/07/20 03/07/20 03/07/20 01:52 01:57 02:00 Temperature 98.8 F Pulse Rate 115 H 117 H Respiratory 18 Rate Blood Pressure O2 Sat by Pulse 96 96 Oximetry 03/07/20 03/07/20 03/07/20 02:02 02:07 02:12 Temperature Pulse Rate 112 H 112 H 117 H Respiratory Rate Blood Pressure O2 Sat by Pulse 97 96 97 Oximetry 03/07/20 03/07/20 03/07/20 02:17 02:19 02:22 Temperature Pulse Rate 111 H 109 H 114 H Respiratory Rate Blood Pressure 119/76 O2 Sat by Pulse 97 96 Oximetry 03/07/20 03/07/20 03/07/20 02:27 02:32 02:37 Temperature Pulse Rate 112 H 109 H 110 H Respiratory Rate Blood Pressure O2 Sat by Pulse 97 97 97 Oximetry 03/07/20 03/07/20 03/07/20 02:42 02:47 02:48 Temperature Pulse Rate 107 H 115 H 106 H Respiratory Rate Blood Pressure 122/76 O2 Sat by Pulse 99 97 Oximetry 03/07/20 03/07/20 03/07/20 02:52 02:57 03:02 Temperature Pulse Rate 110 H 105 H 115 H Respiratory Rate Blood Pressure O2 Sat by Pulse 98 98 98 Oximetry 03/07/20 03/07/20 03/07/20 03:07 03:12 03:17 Temperature Pulse Rate 109 H 106 H 106 H Respiratory Rate Blood Pressure O2 Sat by Pulse 96 96 96 Oximetry 03/07/20 03/07/20 03/07/20 03:19 03:22 03:27 Temperature Pulse Rate 101 H 105 H 103 H Respiratory Rate Blood Pressure 125/77 O2 Sat by Pulse 97 96 Oximetry 03/07/20 03/07/20 03/07/20 03:32 03:37 03:42 Temperature Pulse Rate 104 H 102 H 104 H Respiratory Rate Blood Pressure O2 Sat by Pulse 97 97 96 Oximetry 03/07/20 03/07/20 03/07/20 03:46 03:49 03:52 Temperature Pulse Rate 104 H 112 H 102 H Respiratory Rate Blood Pressure 131/86 O2 Sat by Pulse 96 97 Oximetry 03/07/20 03/07/20 03/07/20 03:57 04:00 04:02 Temperature 98.4 F Pulse Rate 107 H 103 H 111 H Respiratory 18 Rate Blood Pressure 121/81 O2 Sat by Pulse 96 96 Oximetry 03/07/20 03/07/20 03/07/20 04:07 04:12 04:17 Temperature Pulse Rate 100 H 101 H 101 H Respiratory Rate Blood Pressure O2 Sat by Pulse 96 95 97 Oximetry 03/07/20 03/07/20 03/07/20 04:22 04:27 04:30 Temperature Pulse Rate 104 H 102 H 99 H Respiratory Rate Blood Pressure 138/87 O2 Sat by Pulse 97 96 Oximetry 03/07/20 03/07/20 03/07/20 04:32 04:37 04:42 Temperature Pulse Rate 102 H 105 H 104 H Respiratory Rate Blood Pressure O2 Sat by Pulse 96 95 96 Oximetry 03/07/20 03/07/20 03/07/20 04:47 04:52 04:57 Temperature Pulse Rate 108 H 100 H 105 H Respiratory Rate Blood Pressure O2 Sat by Pulse 97 98 96 Oximetry 03/07/20 03/07/20 03/07/20 05:00 05:02 05:07 Temperature Pulse Rate 104 H 103 H 101 H Respiratory Rate Blood Pressure 135/90 O2 Sat by Pulse 97 99 Oximetry 03/07/20 03/07/20 03/07/20 05:12 05:17 05:22 Temperature Pulse Rate 104 H 96 H 100 H Respiratory Rate Blood Pressure O2 Sat by Pulse 98 96 97 Oximetry 03/07/20 03/07/20 03/07/20 05:27 05:30 05:32 Temperature Pulse Rate 97 H 99 H 94 H Respiratory Rate Blood Pressure 108/68 O2 Sat by Pulse 96 99 Oximetry 03/07/20 03/07/20 03/07/20 05:37 05:42 05:47 Temperature Pulse Rate 103 H 103 H 96 H Respiratory Rate Blood Pressure O2 Sat by Pulse 97 97 98 Oximetry 03/07/20 05:52 Temperature Pulse Rate 102 H Respiratory Rate Blood Pressure O2 Sat by Pulse 99 Oximetry - Exam Breasts: deferred Abdomen: Present: normal appearance, soft, other (gravid) Vulva: both: normal Uterus: Present: normal FHR: auscultation normal, category 1 Uterine Contraction Monitor Mode: External Cervical Dilatation: 5 (per nurse) Cervical Effacement Percentage: 75 (per nurse) station: -1 Uterine Contraction Frequency (min): q 2-3 Uterine Contraction Pattern: Regular Uterine Tone Measurement Phase: Resting Uterine Contraction Intensity: Moderate Extremities: normal - Labs Labs: Abnormal Labs 03/05/20 21:53 WBC 13.9 H RBC 3.47 L Hgb 9.9 L Hct 28.8 L
[2020-03-07] MEDS: fentaNYL-BUPIV 2 MCG/ML-0.125% 200 MCG/100 ML BAG EPIDURAL SCH ×2 (08:31→17:05)
[2020-03-07] MEDS ORDERED: NON-FORMULARY EACH (Prenatal One Daily Tablet 1 TAB) PO SCH (10:00)
[2020-03-07] MEDS: PRENATAL VIT27-FE FUMARATE-FOLIC ACID VIT TAB PO SCH (10:59)
--- NOTE | 2020-03-07 11:37 | Progress Note ---
Assessment and Plan - Patient Problems (1) Encounter for induction of labor Current Visit: Yes Status: Acute Plan to address problem: Contact anesthesia for bolus Increase Pitocin titration as tolerated Will reassess in 2 hrs for cervical change If no cervical change after [address] Carbajal (2) Maternal obesity affecting , antepartum Current Visit: Yes Status: Acute (3) Bipolar 1 disorder Current Visit: Yes Status: Acute (4) Chronic hypertension affecting Current Visit: Yes Status: Acute Subjective - Subjective Date of service: 03/07/20 Principal diagnosis: IOL @ 39.2 wks Interval history: See admission H &P Patient reports: new complaints ("It hurts so bad"), loss of fluid (clear), movement normal, contractions (feeling every one) Objective - Vital Signs Vital Signs: Vital Signs - 12hr 03/06/20 03/06/20 03/06/20 23:36 23:37 23:41 Temperature Pulse Rate 139 H 125 H Respiratory Rate Blood Pressure 137/89 Blood Pressure [Right] O2 Sat by Pulse 96 94 Oximetry 03/06/20 03/06/20 03/06/20 23:42 23:46 23:47 Temperature Pulse Rate 119 H 121 H 126 H Respiratory Rate Blood Pressure Blood Pressure [Right] O2 Sat by Pulse 96 94 95 Oximetry 03/06/20 03/06/20 03/06/20 23:51 23:52 23:56 Temperature Pulse Rate 121 H 125 H Respiratory Rate Blood Pressure 138/63 Blood Pressure [Right] O2 Sat by Pulse 94 100 94 Oximetry 03/06/20 03/07/20 03/07/20 23:57 00:00 00:02 Temperature 101.1 F H Pulse Rate 124 H 123 H Respiratory 20 Rate Blood Pressure Blood Pressure [Right] O2 Sat by Pulse 94 98 Oximetry 03/07/20 03/07/20 03/07/20 00:06 00:07 00:12 Temperature Pulse Rate 127 H 133 H 114 H Respiratory Rate Blood Pressure 160/85 Blood Pressure [Right] O2 Sat by Pulse 96 98 Oximetry 03/07/20 03/07/20 03/07/20 00:17 00:18 00:21 Temperature Pulse Rate 122 H 119 H 120 H Respiratory Rate Blood Pressure 144/82 Blood Pressure [Right] O2 Sat by Pulse 96 94 Oximetry 03/07/20 03/07/20 03/07/20 00:22 00:27 00:32 Temperature Pulse Rate 122 H 120 H 117 H Respiratory Rate Blood Pressure Blood Pressure [Right] O2 Sat by Pulse 96 93 96 Oximetry 03/07/20 03/07/20 03/07/20 00:37 00:42 00:47 Temperature Pulse Rate 118 H 121 H 121 H Respiratory Rate Blood Pressure 141/84 Blood Pressure [Right] O2 Sat by Pulse 92 96 96 Oximetry 03/07/20 03/07/20 03/07/20 00:49 00:51 00:52 Temperature Pulse Rate 119 H 114 H 118 H Respiratory Rate Blood Pressure 143/78 Blood Pressure [Right] O2 Sat by Pulse 92 94 Oximetry 03/07/20 03/07/20 03/07/20 00:57 00:58 01:02 Temperature Pulse Rate 113 H 118 H 117 H Respiratory Rate Blood Pressure 138/86 Blood Pressure [Right] O2 Sat by Pulse 99 97 Oximetry 03/07/20 03/07/20 03/07/20 01:03 01:07 01:08 Temperature Pulse Rate 113 H 116 H 114 H Respiratory Rate Blood Pressure 138/85 128/79 Blood Pressure [Right] O2 Sat by Pulse 97 93 Oximetry 03/07/20 03/07/20 03/07/20 01:12 01:17 01:18 Temperature Pulse Rate 113 H 118 H 115 H Respiratory Rate Blood Pressure 127/76 131/78 Blood Pressure [Right] O2 Sat by Pulse 96 97 94 Oximetry 03/07/20 03/07/20 03/07/20 01:22 01:27 01:32 Temperature Pulse Rate 117 H 113 H 120 H Respiratory Rate Blood Pressure Blood Pressure [Right] O2 Sat by Pulse 97 98 96 Oximetry 03/07/20 03/07/20 03/07/20 01:37 01:42 01:47 Temperature Pulse Rate 112 H 112 H 122 H Respiratory Rate Blood Pressure Blood Pressure [Right] O2 Sat by Pulse 98 96 96 Oximetry 03/07/20 03/07/20 03/07/20 01:49 01:52 01:57 Temperature Pulse Rate 118 H 115 H 117 H Respiratory Rate Blood Pressure 120/73 Blood Pressure [Right] O2 Sat by Pulse 96 96 Oximetry 03/07/20 03/07/20 03/07/20 02:00 02:02 02:07 Temperature 98.8 F Pulse Rate 112 H 112 H Respiratory 18 Rate Blood Pressure Blood Pressure [Right] O2 Sat by Pulse 97 96 Oximetry 03/07/20 03/07/20 03/07/20 02:12 02:17 02:19 Temperature Pulse Rate 117 H 111 H 109 H Respiratory Rate Blood Pressure 119/76 Blood Pressure [Right] O2 Sat by Pulse 97 97 Oximetry 03/07/20 03/07/20 03/07/20 02:22 02:27 02:32 Temperature Pulse Rate 114 H 112 H 109 H Respiratory Rate Blood Pressure Blood Pressure [Right] O2 Sat by Pulse 96 97 97 Oximetry 03/07/20 03/07/20 03/07/20 02:37 02:42 02:47 Temperature Pulse Rate 110 H 107 H 115 H Respiratory Rate Blood Pressure Blood Pressure [Right] O2 Sat by Pulse 97 99 97 Oximetry 03/07/20 03/07/20 03/07/20 02:48 02:52 02:57 Temperature Pulse Rate 106 H 110 H 105 H Respiratory Rate Blood Pressure 122/76 Blood Pressure [Right] O2 Sat by Pulse 98 98 Oximetry 03/07/20 03/07/20 03/07/20 03:02 03:07 03:12 Temperature Pulse Rate 115 H 109 H 106 H Respiratory Rate Blood Pressure Blood Pressure [Right] O2 Sat by Pulse 98 96 96 Oximetry 03/07/20 03/07/20 03/07/20 03:17 03:19 03:22 Temperature Pulse Rate 106 H 101 H 105 H Respiratory Rate Blood Pressure 125/77 Blood Pressure [Right] O2 Sat by Pulse 96 97 Oximetry 03/07/20 03/07/20 03/07/20 03:27 03:32 03:37 Temperature Pulse Rate 103 H 104 H 102 H Respiratory Rate Blood Pressure Blood Pressure [Right] O2 Sat by Pulse 96 97 97 Oximetry 03/07/20 03/07/20 03/07/20 03:42 03:46 03:49 Temperature Pulse Rate 104 H 104 H 112 H Respiratory Rate Blood Pressure 131/86 Blood Pressure [Right] O2 Sat by Pulse 96 96 Oximetry 03/07/20 03/07/20 03/07/20 03:52 03:57 04:00 Temperature 98.4 F Pulse Rate 102 H 107 H 103 H Respiratory 18 Rate Blood Pressure 121/81 Blood Pressure [Right] O2 Sat by Pulse 97 96 Oximetry 03/07/20 03/07/20 03/07/20 04:02 04:07 04:12 Temperature Pulse Rate 111 H 100 H 101 H Respiratory Rate Blood Pressure Blood Pressure [Right] O2 Sat by Pulse 96 96 95 Oximetry 03/07/20 03/07/20 03/07/20 04:17 04:22 04:27 Temperature Pulse Rate 101 H 104 H 102 H Respiratory Rate Blood Pressure Blood Pressure [Right] O2 Sat by Pulse 97 97 96 Oximetry 03/07/20 03/07/20 03/07/20 04:30 04:32 04:37 Temperature Pulse Rate 99 H 102 H 105 H Respiratory Rate Blood Pressure 138/87 Blood Pressure [Right] O2 Sat by Pulse 96 95 Oximetry 03/07/20 03/07/20 03/07/20 04:42 04:47 04:52 Temperature Pulse Rate 104 H 108 H 100 H Respiratory Rate Blood Pressure Blood Pressure [Right] O2 Sat by Pulse 96 97 98 Oximetry 03/07/20 03/07/20 03/07/20 04:57 05:00 05:02 Temperature Pulse Rate 105 H 104 H 103 H Respiratory Rate Blood Pressure 135/90 Blood Pressure [Right] O2 Sat by Pulse 96 97 Oximetry 03/07/20 03/07/20 03/07/20 05:07 05:12 05:17 Temperature Pulse Rate 101 H 104 H 96 H Respiratory Rate Blood Pressure Blood Pressure [Right] O2 Sat by Pulse 99 98 96 Oximetry 03/07/20 03/07/20 03/07/20 05:22 05:27 05:30 Temperature Pulse Rate 100 H 97 H 99 H Respiratory Rate Blood Pressure 108/68 Blood Pressure [Right] O2 Sat by Pulse 97 96 Oximetry 03/07/20 03/07/20 03/07/20 05:32 05:37 05:42 Temperature Pulse Rate 94 H 103 H 103 H Respiratory Rate Blood Pressure Blood Pressure [Right] O2 Sat by Pulse 99 97 97 Oximetry 03/07/20 03/07/20 03/07/20 05:47 05:52 05:57 Temperature Pulse Rate 96 H 102 H 96 H Respiratory Rate Blood Pressure Blood Pressure [Right] O2 Sat by Pulse 98 99 98 Oximetry 03/07/20 03/07/20 03/07/20 06:00 06:02 06:07 Temperature Pulse Rate 104 H 112 H 113 H Respiratory Rate Blood Pressure 139/85 Blood Pressure [Right] O2 Sat by Pulse 100 99 Oximetry 03/07/20 03/07/20 03/07/20 06:12 06:17 06:22 Temperature Pulse Rate 106 H 99 H 107 H Respiratory Rate Blood Pressure Blood Pressure [Right] O2 Sat by Pulse 97 98 98 Oximetry 03/07/20 03/07/20 03/07/20 06:27 06:30 06:31 Temperature Pulse Rate 104 H 102 H 103 H Respiratory Rate Blood Pressure 126/78 Blood Pressure [Right] O2 Sat by Pulse 97 97 Oximetry 03/07/20 03/07/20 03/07/20 06:35 06:37 06:42 Temperature 98.8 F Pulse Rate 105 H 102 H Respiratory 18 Rate Blood Pressure Blood Pressure [Right] O2 Sat by Pulse 97 97 Oximetry 03/07/20 03/07/20 03/07/20 06:47 06:52 06:57 Temperature Pulse Rate 103 H 100 H 104 H Respiratory Rate Blood Pressure Blood Pressure [Right] O2 Sat by Pulse 97 98 97 Oximetry 03/07/20 03/07/20 03/07/20 07:00 07:02 07:07 Temperature Pulse Rate 99 H 103 H 104 H Respiratory Rate Blood Pressure 127/77 Blood Pressure [Right] O2 Sat by Pulse 97 99 Oximetry 03/07/20 03/07/20 03/07/20 07:12 07:17 07:22 Temperature Pulse Rate 102 H 100 H 96 H Respiratory Rate Blood Pressure Blood Pressure [Right] O2 Sat by Pulse 97 98 98 Oximetry 03/07/20 03/07/20 03/07/20 07:27 07:30 07:32 Temperature Pulse Rate 104 H 100 H 102 H Respiratory Rate Blood Pressure 132/81 Blood Pressure [Right] O2 Sat by Pulse 96 96 Oximetry 03/07/20 03/07/20 03/07/20 07:37 07:42 07:47 Temperature Pulse Rate 102 H 108 H 104 H Respiratory Rate Blood Pressure Blood Pressure [Right] O2 Sat by Pulse 97 96 97 Oximetry 03/07/20 03/07/20 03/07/20 07:52 07:57 08:00 Temperature Pulse Rate 100 H 102 H 98 H Respiratory Rate Blood Pressure 125/83 Blood Pressure [Right] O2 Sat by Pulse 97 96 Oximetry 03/07/20 03/07/20 03/07/20 08:02 08:07 08:12 Temperature Pulse Rate 101 H 102 H 101 H Respiratory Rate Blood Pressure Blood Pressure [Right] O2 Sat by Pulse 97 100 97 Oximetry 03/07/20 03/07/20 03/07/20 08:15 08:17 08:22 Temperature 99.7 F H Pulse Rate 104 H 103 H 104 H Respiratory 18 Rate Blood Pressure 129/88 Blood Pressure 129/88 [Right] O2 Sat by Pulse 99 98 Oximetry 03/07/20 03/07/20 03/07/20 08:27 08:30 08:32 Temperature Pulse Rate 105 H 105 H 107 H Respiratory Rate Blood Pressure 132/88 Blood Pressure [Right] O2 Sat by Pulse 100 98 Oximetry 03/07/20 03/07/20 03/07/20 08:36 08:42 08:46 Temperature Pulse Rate 108 H 109 H 106 H Respiratory Rate Blood Pressure Blood Pressure [Right] O2 Sat by Pulse 99 98 99 Oximetry 03/07/20 03/07/20 03/07/20 08:52 08:57 09:00 Temperature Pulse Rate 103 H 104 H 100 H Respiratory Rate Blood Pressure 136/86 Blood Pressure [Right] O2 Sat by Pulse 98 98 Oximetry 03/07/20 03/07/20 03/07/20 09:02 09:06 09:11 Temperature Pulse Rate 103 H 104 H 105 H Respiratory Rate Blood Pressure Blood Pressure [Right] O2 Sat by Pulse 97 97 97 Oximetry 03/07/20 03/07/20 03/07/20 09:16 09:22 09:26 Temperature Pulse Rate 107 H 110 H 102 H Respiratory Rate Blood Pressure Blood Pressure [Right] O2 Sat by Pulse 96 96 96 Oximetry 03/07/20 03/07/20 03/07/20 09:30 09:31 09:36 Temperature Pulse Rate 102 H 102 H 110 H Respiratory Rate Blood Pressure 140/90 Blood Pressure [Right] O2 Sat by Pulse 96 98 Oximetry 03/07/20 03/07/20 03/07/20 09:41 09:46 09:52 Temperature Pulse Rate 104 H 107 H 107 H Respiratory Rate Blood Pressure 138/92 Blood Pressure [Right] O2 Sat by Pulse 98 96 97 Oximetry 03/07/20 03/07/20 03/07/20 09:56 10:00 10:01 Temperature Pulse Rate 103 H 101 H 103 H Respiratory Rate Blood Pressure 136/86 Blood Pressure [Right] O2 Sat by Pulse 97 97 Oximetry 03/07/20 03/07/20 03/07/20 10:06 10:11 10:16 Temperature Pulse Rate 104 H 102 H 101 H Respiratory Rate Blood Pressure Blood Pressure [Right] O2 Sat by Pulse 98 96 97 Oximetry 03/07/20 03/07/20 03/07/20 10:21 10:26 10:30 Temperature Pulse Rate 103 H 102 H 99 H Respiratory Rate Blood Pressure 129/74 Blood Pressure [Right] O2 Sat by Pulse 96 97 Oximetry 03/07/20 03/07/20 03/07/20 10:31 10:37 10:42 Temperature Pulse Rate 104 H 104 H 101 H Respiratory Rate Blood Pressure Blood Pressure [Right] O2 Sat by Pulse 99 96 97 Oximetry 03/07/20 03/07/20 03/07/20 10:46 10:52 10:56 Temperature Pulse Rate 100 H 104 H 102 H Respiratory Rate Blood Pressure Blood Pressure [Right] O2 Sat by Pulse 97 97 97 Oximetry 03/07/20 03/07/20 03/07/20 11:00 11:02 11:06 Temperature 98.6 F Pulse Rate 103 H 102 H 105 H Respiratory Rate Blood Pressure 130/85 Blood Pressure [Right] O2 Sat by Pulse 98 98 Oximetry 03/07/20 03/07/20 03/07/20 11:12 11:16 11:21 Temperature Pulse Rate 107 H 108 H 110 H Respiratory Rate Blood Pressure Blood Pressure [Right] O2 Sat by Pulse 99 98 100 Oximetry 03/07/20 03/07/20 03/07/20 11:26 11:30 11:31 Temperature Pulse Rate 111 H 109 H 111 H Respiratory Rate Blood Pressure 146/93 Blood Pressure [Right] O2 Sat by Pulse 99 99 Oximetry - Exam Breasts: deferred Cardiovascular: Normal S1 Lungs: Normal air movement Uterus: Present: other FHR: category 1 Uterine Contraction Monitor Mode: Internal (IUPC placed at 1122 without difficulty) Cervical Dilatation: 4.5 (vertex with capuet present) Cervical Effacement Percentage: 70 (Pitocin at 10 cm) station: -1 Uterine Contraction Frequency (min): 4-5 Uterine Contraction Pattern: Irregular Uterine Tone Measurement Phase: Resting Uterine Contraction Intensity: Moderate - Labs Labs: Abnormal Labs 03/05/20 21:53 WBC 13.9 H RBC 3.47 L Hgb 9.9 L Hct 28.8 L Laboratory Results - last 24 hr 03/06/20 00:24 Coronavirus (PCR) Negative
[2020-03-07] MEDS ORDERED: BUPIVACAINE/PF (0.25%) 2.5 MG/ML 10 ML VIAL INFILTRATI ONE (15:05)
[2020-03-07] MEDS ORDERED: DEXMEDETOMIDINE 200 MCG/2 ML VIAL IV ONE (15:05)
[2020-03-07] MEDS ORDERED: LIDOCAINE 2%/EPINEPHRINE 1:200,000 VIAL (20 ML) INFILTRATI ONE (17:40)
[2020-03-07] MEDS ORDERED: ACETAMINOPHEN 500 MG TAB PO ONE (19:50)
--- NOTE | 2020-03-07 20:41 | Progress Note ---
Labor Epidural - Labor Epidural Start Time: 20:25 Stop Time: 20:37 Performed by:: satinder [facility] Procedure: Patient is requesting replacement of current epidural for labor pain. H&P, labs were reviewed. All questions and concerns were answered. Informed consent was obtained. Timeout performed. Patient in sitting position on side of bed. Sterile prep and drape was performed. 3 mL 1% lidocaine skin wheal at L [2]-L [3]. 18-gauge Touhy epidural needle advanced to [id number] using air technique, [8cm]. 27-gauge spinal needle advanced, positive free-flowing CSF. Spinal dose of [Marcaine 3.375mg]. Epidural catheter advanced to [15] cm. [-] Aspiration, [-] test dose. Sterile dressing applied. Patient tolerated procedure well.
[2020-03-07] MEDS ORDERED: ceFAZolin/Water 2 GM/20 ML 2 GM/20 ML SYRINGE IV NR (23:45)
[2020-03-07] MEDS ORDERED: FAMOTIDINE 20 MG/2 ML INJ IV ONE (23:54)
[2020-03-07] MEDS ORDERED: BICITRA ORAL LIQD 30ML PO ONE (23:54)
[2020-03-07] MEDS ORDERED: METOCLOPRAMIDE 10 MG/2 ML INJ IV ONE (23:54)
[2020-03-08] MEDS ORDERED: GENTAMICIN/NS 120MG/100ML 120 MG/100 ML BAG IV ONE (00:17)
[2020-03-08] MEDS: CLINDAMYCIN 300 MG/50 mL 300 MG/50 ML BAG IV SCH ×2 (00:17→06:29)
[2020-03-08] MEDS ORDERED: ONDANSETRON 4 MG/2 ML INJ ONE (00:36)
[2020-03-08] MEDS ORDERED: LIDOCAINE 2%/EPINEPHRINE 1:200,000 VIAL (20 ML) INFILTRATI ONE (00:36)
[2020-03-08] MEDS ORDERED: OXYTOCIN 10 UNIT/1 ML INJ ONE (00:38)
[2020-03-08] MEDS ORDERED: KETOROLAC 30 MG/1 ML INJ ONE (00:38)
[2020-03-08] MEDS ORDERED: ceFAZolin/STERILE WATER 2 GM/20 ML SYRINGE IV ONE (00:40)
--- NOTE | 2020-03-08 00:40 | Anesthesia Day of Surgery ---
Anesthesia Day of Surgery - Day of Surgery Patient Examined: Yes Patient H&P Reviewed: Yes Patient is NPO: Yes Beta Blockers: No Cardiac Clearance: No Pulmonary Clearance: No Hermes's Test: N/A
[2020-03-08] MEDS ORDERED: ePHEDrine SULFATE 50 MG/1 ML INJ ONE (00:42)
[2020-03-08] MEDS ORDERED: PROMETHAZINE 25 MG TAB PO PRN (00:43)
[2020-03-08] MEDS ORDERED: HYDROmorphone 1 MG/1 ML INJ IV PRN (00:43)
[2020-03-08] MEDS ORDERED: ONDANSETRON 4 MG/2 ML INJ IV PRN ×2 (00:43→02:22)
[2020-03-08] MEDS ORDERED: PROMETHAZINE 25 MG RECT SUPP PR PRN ×2 (00:43→02:22)
[2020-03-08] MEDS ORDERED: dexAMETHasone 20 MG/5 ML VIAL ONE (00:48)
[2020-03-08] MEDS ORDERED: BUPIVACAINE/PF (0.5%) 5 MG/1 ML 30 ML VIAL INFILTRATI ONE (00:48)
[2020-03-08] MEDS ORDERED: WATER FOR IRRIG STERILE 1,500 ML BOTTLE IR ONE (00:50)
[2020-03-08] MEDS ORDERED: SODIUM CHLORIDE 0.9% IRR 1,500 ML BOTTLE IR ONE (00:50)
[2020-03-08] MEDS ORDERED: LACTATED RINGERS 1,000 ML ONE (00:53)
[2020-03-08] MEDS ORDERED: GENTAMICIN/NS 80 MG/100 ML 100 ML IV SCH (01:00)
[2020-03-08] MEDS ORDERED: CARBOPROST TROMETHAMINE 250 MCG/1 ML INJ IM ONE (01:10)
[2020-03-08] MEDS ORDERED: METHYLERGONOVINE MALEATE 0.2 MG/ML VIAL IM ONE (01:10)
[2020-03-08] MEDS ORDERED: LOPERAMIDE 2 MG CAP PO PRN (01:10)
--- NOTE | 2020-03-08 02:00 | Procedure Note ---
OB Delivery Note - Delivery Date of Delivery: 03/08/20 Surgeon: MEHREEN SHAW JR Estimated blood loss: other (1200cc) - Section Preop diagnosis: arrest of dilation, other (chorioaminotitis) Postop diagnosis: same section procedure: section, primary low transverse Disposition: PACU Complications: uterine atony (s/p Methergine x 1) Narrative: Indication: 24 yo at 39w3d c/b maternal obesity, heart murmur (cardiac consult 12/10; normal echo 12/30), and HTN diagnosed in childhood (pt not on any medications) s/p attempted IOL for maternal obesity, however complicated by prolonged rupture membranes and chorioamnionitis on antibiotics with subsequent failure to progress for primary . Findings: Normal uterus, tubes and ovaries. Clear fluid. No nuchal cord. Delivery of male at 0102 Weight 3723 g Height 20 inches Apgars 8/9 EBL 1200 cc Intraoperative IV fluids 3000 cc Urine output 300 cc Procedure: Patient was taken to the operating room prepped and draped in the usual sterile fashion. Pfannenstiel skin incision was made and carried down to the underlying fascia. Fascia was incised and the incision was distended bilaterally. Rectus fascia was dissected off the rectus muscle superiorly and inferiorly. Peritoneum was identified and entered. Peritoneal incision extended superiorly and inferiorly. The bladder was visualized. The bladder blade was placed. Uterine hysterotomy incision was made and extended bilaterally. The baby was delivered in the typical vertex fashion after reducing a nuchal cord x 1. Baby was bulb suction at delivery. The cord was cut and clamped and handed off to the team. The placenta was delivered spontaneously. The uterus was exteriorized and cleared of all clots and debris. Uterine incision was closed with a 0 Vicryl in a running locked fashion in 2 layers. Good hemostasis was noted with Methergine x1 for uterine atony. The urine was noted to be clear. Uterus, tubes, and ovaries were returned to the abdominal cavity. Bilateral gutters were cleared and the abdomen and pelvis were irrigated. Good hemostasis noted. Attention was directed towards the rectus fascia which was reapproximated with 0 PDS in a running fashion. The subcutaneous tissue was irrigated and reapproximated with 2-0 Vicryl in a running fashion. Skin was closed with a 4-0 Vicryl in a subcuticular fashion. The procedure was completed and the patient tolerated the procedure well. All instruments and lap counts were correct x2. - Infant A at 1 minute: 8 at 5 minutes: 9 Infant Gender: Male
[2020-03-08] MEDS ORDERED: SIMETHICONE 80 MG CHEW TAB PO PRN (02:22)
[2020-03-08] MEDS ORDERED: LANOLIN/ZINC/DIMETHICONE (LANSINOH) 7 GM TP PRN (02:22)
[2020-03-08] MEDS ORDERED: SENNOSIDES 8.6 MG TAB PO PRN (02:22)
[2020-03-08] MEDS ORDERED: MAGNESIUM HYDROXIDE (MOM) ORAL LIQD UDC PO PRN (02:22)
[2020-03-08] MEDS ORDERED: ACETAMINOPHEN 325 MG TAB PO PRN (02:22)
[2020-03-08] MEDS ORDERED: WITCH HAZEL/ GLYCERIN PAD TP PRN (02:22)
[2020-03-08] MEDS ORDERED: NALOXONE 0.4 MG/1 ML INJ IV PRN (02:22)
[2020-03-08] MEDS ORDERED: HYDROCORTISONE 25 MG RECTAL SUPP PR PRN (02:22)
--- NOTE | 2020-03-08 02:32 | Progress Note ---
Regional Anesthesia Block - Regional Anesthesia Block Start Time: 02:15 Stop Time: 02:25 Performed By:: VANE SMITH ([facility]) Procedure: Patient consented for TAP block for post surgical pain management. Patient identified, monitors placed, and time out performed. Mid axillary TAP identified bilaterally via ultrasound. Skin prepped bilaterally with [chlorhexidine] and [20g stimuplex] needle advanced to the TAP. 30ml [Marcaine 0.25% with 25mcg Precedex and Decadron 4mg] injected under ultrasound guidance on the [left] side. 30ml [Marcaine 0.25% with 25mcg Precedex and Decadron 4mg] injected under ultrasound guidance on the [right] side.
[2020-03-08] MEDS ORDERED: OXYTOCIN DRIP 30 UNITS/500 ML BAG IV SCH (03:00)
[2020-03-08] MEDS: KETOROLAC 30 MG/1 ML INJ IV SCH ×2 (09:10→15:46)
[2020-03-08] MEDS: GENTAMICIN/NS 120MG/100ML 120 MG/100 ML BAG IV SCH ×2 (09:33→17:31)
[2020-03-08] MEDS: MORPHINE 4 MG/1 ML INJ IV PRN ×2 (11:00→17:12)
[2020-03-08] MEDS: CLINDAMYCIN IV SCH ×2 (13:30→18:32)
[2020-03-08] MEDS: WATER IV SCH ×2 (13:30→18:32)
[2020-03-08] MEDS: DEXTROSE 5% IV SCH ×2 (13:30→18:32)
--- NOTE | 2020-03-08 13:53 | Post Anesthesia Evaluation ---
- Post Anesthesia Evaluation Patient Participated: Yes Airway Patent: Yes Stable Respiratory Function: Yes Nausea/Vomiting: No Temp > 96.8F: Yes Pain Manageable: Yes Adequeate Hydration: Yes Anesthesia Complications: No Block Receding Appropriately: Yes Patient on Ventilator: No
[2020-03-08 18:55] LABS: Hematocrit 27.6 % (30.3-42.9); Hemoglobin 9.4 gm/dl (10.1-14.3)
[2020-03-09] MEDS: MORPHINE 4 MG/1 ML INJ IV PRN (00:37)
[2020-03-09] MEDS: GENTAMICIN/NS 120MG/100ML 120 MG/100 ML BAG IV SCH (00:46)
[2020-03-09] MEDS: CLINDAMYCIN IV SCH ×2 (01:14→06:43)
[2020-03-09] MEDS: WATER IV SCH ×2 (01:14→06:43)
[2020-03-09] MEDS: DEXTROSE 5% IV SCH ×2 (01:14→06:43)
[2020-03-09] MEDS: oxyCODONE /ACETAMINOPHEN 5-325MG TAB PO PRN ×3 (01:15→13:22)
[2020-03-09] MEDS: IBUPROFEN 600 MG TAB PO PRN ×2 (06:05→16:45)
--- NOTE | 2020-03-09 08:17 | Progress Note ---
Assessment and Plan A: /postop day 1 S/P primary LTCS. Anemia. P: Supplement with iron. Encouraged ambulation. Subjective - Subjective Date of service: 03/09/20 Principal diagnosis: /postop day 1 S/P primary LTCS Patient reports: appetite normal, voiding normally, pain well controlled, flatus, ambulating normally, no dizzy ambulation, no nauseated : doing well Objective - Vital Signs Latest vital signs: Vital Signs Temp Pulse Resp BP BP Pulse Ox 03/09/20 07:27 97.5 F L 89 18 121/78 94 03/09/20 00:27 97.6 F 99 H 18 126/89 98 03/08/20 20:32 97.9 F 106 H 20 133/84 97 03/08/20 16:46 97.5 F L 93 H 18 126/80 95 03/08/20 13:05 98.0 F 97 H 17 120/87 94 03/08/20 08:43 97.9 F 98 H 18 135/88 92 Intake and Output 03/08/20 03/09/20 03/09/20 23:59 07:59 15:59 Intake Total 992 324 Balance 992 324 Intake: IV 152 204 Cleocin 300 mg In D5w (50 52 104 ml) 50 ml @ 156 mls/hr IV Q6H MELONY Rx#:[id number] GENTAMICIN/NS 120MG/100ML 100 100 120 mg In 100 ml @ 200 mls/hr IV Q8H MELONY Rx#: [id number] Oral 120 Intake, Free Water 840 Other: Total, Intake Amount 120 # Voids Void 1 1 - Exam Cardiovascular: Present: Regular rate, No murmurs Lungs: Present: Clear to auscultation Abdomen: Present: normal appearance, soft, normal bowel sounds. Absent: distention, tenderness, guarding, rigidity Uterus: Present: normal, firm, fundal height below umbilicus. Absent: bogginess, tenderness Extremities: Present: normal. Absent: tenderness Incision: Present: normal, dry, dressed - Labs Labs: Abnormal lab results 03/08/20 Range/Units 18:02 Hgb 9.4 L (10.1-14.3) gm/dl Hct 27.6 L (30.3-42.9) %
[2020-03-09] MEDS: PRENATAL VIT27-FE FUMARATE-FOLIC ACID VIT TAB PO SCH (10:31)
[2020-03-09] MEDS: FERROUS SULFATE 325 MG TAB PO SCH (22:04)
[2020-03-10] MEDS: IBUPROFEN 600 MG TAB PO PRN ×2 (00:16→09:23)
[2020-03-10] MEDS: oxyCODONE /ACETAMINOPHEN 5-325MG TAB PO PRN (04:06)
[2020-03-10] MEDS ORDERED: DIPHtheria,PERTUSSIS(ACELL),TETANUS VACCINE/PF 0.5 ML VIAL IM ONE (06:55)
--- NOTE | 2020-03-10 09:10 | Progress Note ---
Assessment and Plan A: S/P LTCS Anemia Bipolar p:D/C home per pt request Continue pnv & iron F/U 2 wks for inc check - Patient Problems (1) Term Current Visit: Yes Status: Acute (2) Maternal obesity affecting , antepartum Current Visit: Yes Status: Acute (3) Bipolar 1 disorder Current Visit: Yes Status: Acute (4) Preeclampsia Current Visit: Yes Status: Acute Subjective - Subjective Date of service: 03/10/20 Principal diagnosis: /postop day 1 S/P primary LTCS Patient reports: appetite normal, voiding normally, pain well controlled, ambulating normally [place]: doing well, nursing well Objective - Vital Signs Latest vital signs: Vital Signs Temp Pulse Resp BP BP Pulse Ox 03/10/20 05:06 18 03/10/20 04:06 20 03/10/20 01:16 18 03/10/20 00:30 98 F 68 18 117/79 03/10/20 00:16 18 03/09/20 20:37 98.0 F 99 H 18 118/81 95 03/09/20 16:45 20 03/09/20 15:59 97.6 F 81 18 129/87 97 03/09/20 13:22 20 Intake and Output 03/09/20 03/10/20 03/10/20 22:59 06:59 14:59 Intake Total 120 540 Output Total 850 Balance -730 540 Intake: Intake, Free Water 120 540 Output: Urine 850 Void 850 Other: Total, Output Amount 350 # Voids Void 1 1 - Exam Breasts: Present: normal Abdomen: Present: normal appearance, soft, normal bowel sounds Vulva: both: normal Uterus: Present: normal, firm, fundal height below umbilicus Extremities: Present: normal Incision: Present: normal, dry
--- NOTE | 2020-03-10 09:15 | Discharge Summary ---
Providers - Providers Date of Admission: 03/05/20 20:42 Date of discharge: 03/10/20 Attending physician: ALL GARCIA Primary care physician: ALL GARCIA Hospitalization Reason for admission: induction of labor Delivery: Procedure: primary low transverse Episiotomy: none Laceration: none Incision: normal, dry, intact Other procedures: none complications: none Discharge diagnosis: IUP at term delivered baby: male Hospital course: Pt was admitted for an IOL r/t preeclampsia and ended up with a LTCS. She had an uneventful pp stay and was dc'd in stable condition. See H&P,delivery summary, and pp notes. Condition at discharge: Stable Disposition: DC-01 TO HOME OR SELFCARE - Discharge Diagnoses (1) Term Status: Acute (2) Maternal obesity affecting , antepartum Status: Acute (3) Bipolar 1 disorder Status: Acute (4) Preeclampsia Status: Acute Plan - Discharge Medications Prescriptions: Ibuprofen [Motrin 800 MG tab] 800 mg PO Q8HR PRN #30 tablet PRN Reason: Pain, Mild (1-3) oxyCODONE /ACETAMINOPHEN [Percocet 5/325 mg] 1 tab PO Q6H PRN #30 tablet PRN Reason: Pain, Moderate (4-6) - Provider Discharge Summary Additional instructions: [] Smoking cessation referral if applicable(refer to patient education folder for contact #) [] Refer to [facility]'s [facility] Booklet Call your doctor immediately for: * Fever > 100.5 * Heavy vaginal bleeding ( >1 pad per hour) * Severe persistent headache * Shortness of breath * Reddened, hot, painful area to leg or breast * Drainage or odor from incision. * Keep incision clean and dry at all times and follow doctor's instructions regarding bathing/showering - Follow up plan Follow up: MEHREEN SHAW JR, MD [Staff Physician] - 14 Days Forms: [facility] Discharge Summary
[2020-03-10] MEDS: FERROUS SULFATE 325 MG TAB PO SCH (09:23)
[2020-03-10] MEDS: PRENATAL VIT27-FE FUMARATE-FOLIC ACID VIT TAB PO SCH (09:23)
[2020-03-10 13:23] VITALS: BP 132/80
== END 2020-03-10 13:15 | disposition home or self-care (01) | DRG 786 ==
LOC: LD 20:42 → OB 03-08 04:02
PROVIDERS: ADMIT Obstetrics & Gynecology; ATTEND Obstetrics & Gynecology
PROC: 3E0P7VZ Introduction of Hormone into Female Reproductive, Via Natural or Artificial Opening (ICD-10-PCS; principal; 2020-03-06)
PROC: 3E0R3BZ Introduction of Anesthetic Agent into Spinal Canal, Percutaneous Approach (ICD-10-PCS; 2020-03-06)
PROC: 00HU33Z Insertion of Infusion Device into Spinal Canal, Percutaneous Approach (ICD-10-PCS; 2020-03-06)
PROC: 10H07YZ Insertion of Other Device into Products of Conception, Via Natural or Artificial Opening (ICD-10-PCS; 2020-03-07)
PROC: 10D00Z1 Extraction of Products of Conception, Low, Open Approach (ICD-10-PCS; 2020-03-08)
PROC: 3E0234Z Introduction of Serum, Toxoid and Vaccine into Muscle, Percutaneous Approach (ICD-10-PCS; 2020-03-10)
DX: O11.4 Pre-existing hypertension with pre-eclampsia, complicating childbirth (principal); O41.1230 Chorioamnionitis, third trimester, not applicable or unspecified; O99.214 Obesity complicating childbirth; E66.9 Obesity, unspecified; O61.9 Failed induction of labor, unspecified; Z88.5 Allergy status to narcotic agent; O99.344 Other mental disorders complicating childbirth; F31.9 Bipolar disorder, unspecified; Z37.0 Single live birth; Z20.828 Contact with and (suspected) exposure to other viral communicable diseases; Z23 Encounter for immunization; O90.81 Anemia of the puerperium; D64.9 Anemia, unspecified; Z3A.39 39 weeks gestation of pregnancy
CPT/HCPCS: 36415; 59200; 82565; 85014; 85018; 85027; 86592; 86850; 86900; 86901; G0378; J0290; J0595; J0690; J1100; J1580; J1885; J2270; J2405; J2590; J2765; J3010; J7120; U0003